=== PATIENT | male | born 1995 | race Caucasian/White ===

== ENCOUNTER 2018-08-23 18:44 | Emergency (ER) | payer OTHER ==
[~2018-08-23] VITALS: Ht 172.7 cm; Wt 68.0 kg
[2018-08-23 18:59] VITALS: BP 129/64
[2018-08-23] MEDS ORDERED: NAPROXEN 500 MG TABLET PO STA (20:15)
[2018-08-23] MEDS ORDERED: DIPHTH,PERTUSS(ACELL),TET TOX 0.5 ML DISP.SYRIN. VAX IM ONE (20:30)
[2018-08-23] MEDS ORDERED: LIDOCAINE 1% PF 2 ML VIAL. INJ ONE (20:30)
--- NOTE | 2018-08-23 21:28 | PHYS DOC ---
Past Medical History Past Medical History: No Pertinent History Past Surgical History: No Surgical History Alcohol Use: None Drug Use: None Adult General Chief Complaint Chief Complaint: LACERATION/AVULSION HPI HPI Patient is a 22 year old male who presents to the ER with complaints of a laceration to the left side of his forehead. PT states he was at work when he was hit in the head with a metal pole. He denies any LOC, nausea, vomiting, vision changes, neck pain, or headache. He is unsure of when his last tetanus immunization was. Review of Systems Review of Systems Constitutional: Denies fever or chills [] Eyes: Denies change in visual acuity, or eye pain [] Integument: See HPI Neurologic: Denies headache, focal weakness or sensory changes [] All other systems were reviewed and found to be within normal limits, except as documented in this note. Current Medications Current Medications Current Medications Medications (Trade) Dose Ordered Sig/Rajan Start Time Stop Time Status Last Admin Dose Admin Diphtheria/ Tetanus/Acell Pertussis (Boostrix) 0.5 ml ONCE ONCE 08/23/18 20:30 08/23/18 20:31 DC 08/23/18 20:41 0.5 ML Lidocaine HCl (Xylocaine-Mpf 1% 2ml Vial) 4 ml 1X ONCE 08/23/18 20:30 08/23/18 20:31 DC 08/23/18 20:39 4 ML Naproxen (Naprosyn) 500 mg 1X STAT 08/23/18 20:15 08/23/18 20:16 DC 08/23/18 20:40 500 MG Neomycin/ Polymyxin/ Bacitracin (Triple Antibiotic Ointment) 1 pkt 1X ONCE 08/23/18 22:00 08/23/18 22:00 DC 08/23/18 21:34 1 PKT Allergies Allergies Allergies Coded Allergies Type Severity Reaction Last Updated Verified No Known Drug Allergies 08/23/18 No Physical Exam Physical Exam Constitutional: Well developed, well nourished, no acute distress, non-toxic appearance. [] HENT: Normocephalic, atraumatic, bilateral external ears normal, nose normal. [ ] Eyes: PERRLA, conjunctiva normal, no discharge. [] Neck: Normal range of motion, no tenderness, supple, no stridor. [] Skin: Warm, dry, no erythema, no rash; 2 cm laceration to left forehead, bleeding controlled [] Extremities: No cyanosis, ROM intact, no edema. [] Neurologic: Alert and oriented X 3, normal motor function, normal sensory function, no focal deficits noted. [] Psychologic: Affect normal, judgement normal, mood normal. [] Current Patient Data Vital Signs Vital Signs Date Time Temp Pulse Resp B/P (MAP) Pulse Ox O2 Delivery O2 Flow Rate FiO2 12//18 18:59 98.1 48 18 129/64 (85) 98 Room Air 98.1 EKG EKG [] Radiology/Procedures Radiology/Procedures [] Course & Med Decision Making Course & Med Decision Making Pertinent Labs and Imaging studies reviewed. (See chart for details) Dx: facial laceration, head injury Wound repair as documented in procedures. Pt was given Tdap in the department. Pt was instructed to keep the area clean and dry. Sutures out in 5-7 days. Tylenol or ibuprofen as needed for pain. Return to ER if symptoms worsen or signs of head injury develop. Patient verbalized an understanding of home care, medications, follow-up, and return to ED instructions and was in agreement with the plan of care. Dragon Disclaimer Dragon Disclaimer This electronic medical record was generated, in whole or in part, using a voice recognition dictation system. Departure Departure Impression: Primary Impression: Laceration of face without complication Additional Impressions: Closed head injury without loss of consciousness Tetanus toxoid vaccination administered at current visit Disposition: 01 HOME, SELF-CARE Condition: STABLE Referrals: NO PCP (PCP) Patient Instructions: Facial Laceration, [id number], VIS, Tetanus, Diphtheria , and Pertussis (Tdap) - CDC Additional Instructions: Keep the area clean and dry. Sutures out in 5-7 days. Tylenol or ibuprofen as needed for pain. Return to ER if symptoms worsen or signs of head injury develop. Laceration/Wound Repair Laceration/Wound Repair : Wound Location: head Wound's Depth, Shape: superficial Wound Length (cm): 2 Wound Explored: clean Irrigated w/ Saline (ccs): 100 Betadine Prep?: Yes Anesthesia: 1% Lidocaine Volume Anesthetic (ccs): 4 Wound Debrided: minimal Wound Repaired With: sutures Suture Size/Type: 6:0 (ethilon) Number of Sutures: 5 Layer Closure?: No Problem Qualifiers Primary Impression: Laceration of face without complication Encounter type: initial encounter Qualified Codes: S01.81XA - Laceration without foreign body of other part of head, initial encounter Additional Impressions: Closed head injury without loss of consciousness Encounter type: initial encounter Qualified Codes: S09.90XA - Unspecified injury of head, initial encounter VAMSI PAULINO [employer] Aug 23, 2018 21:27
[2018-08-23] MEDS ORDERED: NEOMY/BACITR/POLYMYXIN OINT PACKET. TP ONE (22:00)
== END 2018-08-23 21:30 | disposition home or self-care (01) ==
LOC: ER 18:44
DX: S01.81XA Laceration without foreign body of other part of head, initial encounter (principal); W22.8XXA Striking against or struck by other objects, initial encounter; Y93.89 Activity, other specified; Y92.69 Other specified industrial and construction area as the place of occurrence of the external cause; Y99.0 Civilian activity done for income or pay
CPT/HCPCS: 12011; 90471; 90715; 99283-25